=== PATIENT | female | born 1995 | race Caucasian/White ===

== ENCOUNTER 2017-10-11 23:54 | Emergency (ER) | payer MEDICAID ==
[2017-10-12] MEDS ORDERED: Amoxicillin PO (*) 500 MG CAP PO ONE (00:11)
[2017-10-12] MEDS ORDERED: Acetaminophen TAB* 325 MG PO ONE (00:12)
[2017-10-12 00:32] VITALS: BP 107/49
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
== END 2017-10-12 00:30 | disposition home or self-care (01) ==
LOC: ED 23:54
DX: O26.891 Other specified pregnancy related conditions, first trimester (principal); J02.9 Acute pharyngitis, unspecified; Z3A.10 10 weeks gestation of pregnancy; O99.331 Smoking (tobacco) complicating pregnancy, first trimester; F17.210 Nicotine dependence, cigarettes, uncomplicated
CPT/HCPCS: 99282; A9270-GY

== ENCOUNTER 2017-11-05 21:49 | Emergency (ER) | payer MEDICAID ==
[2017-11-05] MEDS ORDERED: Acetaminophen TAB* 325 MG PO ONE (22:30)
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
[2017-11-05 23:05] VITALS: BP 119/74
== END 2017-11-05 23:04 | disposition home or self-care (01) ==
LOC: ED 21:49
DX: M54.2 Cervicalgia (principal); R06.02 Shortness of breath; F17.210 Nicotine dependence, cigarettes, uncomplicated; Z33.1 Pregnant state, incidental
CPT/HCPCS: 99282; A9270-GY

== ENCOUNTER 2017-12-28 12:22 | Emergency (ER) | payer MEDICAID ==
[2017-12-28] MEDS ORDERED: NS 0.9% 1000 ML* 1,000 ML IV ONE (12:55)
[2017-12-28] MEDS ORDERED: Ondansetron INJ* 2 MG/ML VIAL IV ONE (12:56)
[2017-12-28 13:25] LABS: Urine Appearance Cloudy; Urine Blood Negative (Negative); Urine Color Amber; Urine Ketones Trace (Negative); Urine Protein 1+(30 mg/dL) (Negative); Urine Specific Gravity 1.031 (1.010-1.030); Urine Urobilinogen Negative (Negative)
[2017-12-28 13:29] LABS: ABS Basophils 0 10^3/ul (0-0.2); ABS Eosinophils 0.2 10^3/ul (0-0.6); ABS Lymphocytes 1.8 10^3/ul (1.0-4.8); ABS Monocytes 0.4 10^3/ul (0-0.8); ABS Neutrophils 6.6 10^3/ul (1.5-7.7); ABS Nucleated RBC 0 10^3/ul; Eosinophil % 2.2 % (0-6); Hematocrit 30 % (35-47); Hemoglobin 10.5 g/dl (12.0-16.0); Lymphocyte % 19.7 % (25-47); Mean Corpuscular HGB Conc 36 g/dl (31-36); Mean Corpuscular Hemoglobin 29 pg (27-31); Mean Corpuscular Volume 83 fL (80-97); Mean Platelet Volume 6 um3 (7.4-10.4); Nucleated Red Blood Cells % 0; Platelet Count 180 10^3/ul (150-450); Red Blood Count 3.57 10^6/ul (4.0-5.4); Red Cell Distribution Width 14 % (10.5-15); White Blood Count 8.9 10^3/ul (3.5-10.8)
[2017-12-28 13:43] LABS: EGFR Non-African American 195.8 (>60)
[2017-12-28 14:53] VITALS: BP 96/64
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
--- NOTE | 2017-12-30 10:53 | ED ---
Progress - Progress Note Progress Note: Patient's urine culture reveals 10-25,000 strep group B and greater than 100, 000 normal kylie. No further action needed at this time regarding treatment however informed patient to notify her OBGYN of results (she reports she follows w/ [facility]) as treatment will be necessary given the fact that she is . SHe admits she's had this in the past w/ pregnancies and is aware of this bacterial colonization. She also admits she continues to have diarrhea past 2 weeks and this continues despite fluid replacement in ED. Advised pt to request stool cx through PCP's office. Pt agrees to call Sunday and return to ED if danger s/sx present. Course/Dx - Diagnoses Provider Diagnoses: Nausea and vomiting in
== END 2017-12-28 14:52 | disposition home or self-care (01) ==
LOC: ED 12:22
DX: O21.2 Late vomiting of pregnancy (principal); O26.892 Other specified pregnancy related conditions, second trimester; R19.7 Diarrhea, unspecified; R10.9 Unspecified abdominal pain; O99.332 Smoking (tobacco) complicating pregnancy, second trimester; F17.210 Nicotine dependence, cigarettes, uncomplicated; Z3A.21 21 weeks gestation of pregnancy; Z88.5 Allergy status to narcotic agent
CPT/HCPCS: 36415; 80053; 81003; 81015; 83690; 85025; 86140; 87077; 87086; 96361; 96374; 99282; J2405

== ENCOUNTER 2018-01-04 11:51 | Emergency (ER) | payer MEDICAID ==
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
[2018-01-04 14:06] VITALS: BP 121/68
== END 2018-01-04 14:05 | disposition home or self-care (01) ==
LOC: ED 11:51
DX: O26.892 Other specified pregnancy related conditions, second trimester (principal); Z3A.22 22 weeks gestation of pregnancy; R22.9 Localized swelling, mass and lump, unspecified; J45.909 Unspecified asthma, uncomplicated; O99.342 Other mental disorders complicating pregnancy, second trimester; F41.9 Anxiety disorder, unspecified; Z88.5 Allergy status to narcotic agent
CPT/HCPCS: 99281

== ENCOUNTER 2018-01-15 21:49 | Emergency (ER) | payer MEDICAID ==
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
[2018-01-15 22:45] VITALS: BP 111/49
== END 2018-01-15 22:45 | disposition home or self-care (01) ==
LOC: ED 21:49
DX: S50.311A Abrasion of right elbow, initial encounter (principal); W45.8XXA Other foreign body or object entering through skin, initial encounter; Y92.9 Unspecified place or not applicable; F17.210 Nicotine dependence, cigarettes, uncomplicated
CPT/HCPCS: 99281

== ENCOUNTER 2018-01-29 21:44 | Emergency (ER) | payer MEDICAID ==
[2018-01-29] MEDS ORDERED: Albuterol/Ipratropium NEB.SOL* Albuterol 2.5 MG/Ipratropium 0.5 MG 3 ML INH ONE (22:15)
[2018-01-29 22:51] VITALS: BP 0/0
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
== END 2018-01-29 22:52 | disposition home or self-care (01) ==
LOC: ED 21:44
DX: J45.909 Unspecified asthma, uncomplicated (principal); F41.9 Anxiety disorder, unspecified; R06.02 Shortness of breath; F17.210 Nicotine dependence, cigarettes, uncomplicated
CPT/HCPCS: 99282

== ENCOUNTER 2018-02-21 06:42 | Emergency (ER) | payer MEDICAID ==
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
[2018-02-21 07:44] VITALS: BP 102/62
[2018-02-21 07:52] LABS: EGFR Non-African American 152.2 (>60)
[2018-02-21 07:52] LABS: ABS Basophils 0 10^3/ul (0-0.2); ABS Eosinophils 0.2 10^3/ul (0-0.6); ABS Lymphocytes 2.5 10^3/ul (1.0-4.8); ABS Monocytes 0.6 10^3/ul (0-0.8); ABS Neutrophils 8.1 10^3/ul (1.5-7.7); ABS Nucleated RBC 0 10^3/ul; Eosinophil % 1.4 % (0-6); Hematocrit 29 % (35-47); Hemoglobin 10.2 g/dl (12.0-16.0); Lymphocyte % 22.3 % (25-47); Mean Corpuscular HGB Conc 35 g/dl (31-36); Mean Corpuscular Hemoglobin 29 pg (27-31); Mean Corpuscular Volume 82 fL (80-97); Mean Platelet Volume 6.3 um3 (7.4-10.4); Nucleated Red Blood Cells % 0; Platelet Count 196 10^3/ul (150-450); Red Blood Count 3.55 10^6/ul (4.0-5.4); Red Cell Distribution Width 14 % (10.5-15); White Blood Count 11.3 10^3/ul (3.5-10.8)
[2018-02-21 08:04] LABS: INR 1.02 (0.77-1.02)
== END 2018-02-21 07:40 | disposition home or self-care (01) ==
LOC: ED 06:42
DX: O9A.213 Injury, poisoning and certain other consequences of external causes complicating pregnancy, third trimester (principal); O9A.313 Physical abuse complicating pregnancy, third trimester; Z3A.30 30 weeks gestation of pregnancy; R10.9 Unspecified abdominal pain; F17.210 Nicotine dependence, cigarettes, uncomplicated
CPT/HCPCS: 36415; 80053; 85025; 85610; 86850; 86900; 86901; 99282

== ENCOUNTER 2018-04-29 12:05 | Inpatient (IN) | payer MEDICAID ==
[~2018-04-29 12:05] MED LIST: Oxytocin in LR* 20 UNITS/1,000 ML BAG IVPB SCH; Penicillin G Potassium IV* 5,000,000 UNITS in NS 0.9% 100 ML* 100 ML IVPB ONE
[2018-04-29 13:00] LABS: ABS Basophils 0.1 10^3/ul (0-0.2); ABS Eosinophils 0.2 10^3/ul (0-0.6); ABS Lymphocytes 1.7 10^3/ul (1.0-4.8); ABS Monocytes 0.5 10^3/ul (0-0.8); ABS Neutrophils 7.6 10^3/ul (1.5-7.7); ABS Nucleated RBC 0 10^3/ul; Hematocrit 30 % (35-47); Hemoglobin 10.3 g/dl (12.0-16.0); Mean Corpuscular HGB Conc 34 g/dl (31-36); Mean Corpuscular Hemoglobin 28 pg (27-31); Mean Corpuscular Volume 81 fL (80-97); Mean Platelet Volume 6.5 um3 (7.4-10.4); Nucleated Red Blood Cells % 0; Platelet Count 201 10^3/ul (150-450); Red Blood Count 3.75 10^6/ul (4.00-5.40); Red Cell Distribution Width 15 % (10.5-15)
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
[2018-04-29] MEDS: Penicillin G Potassium IV* 2,500,000 UNITS in NS 0.9% 100 ML* 100 ML IVPB SCH ×2 (17:38→21:35)
[2018-04-29] MEDS ORDERED: Oxytocin in LR* 20 UNITS/1,000 ML BAG IVPB SCH (20:00)
[2018-04-29] MEDS ORDERED: OBEPIDURAL* 250 ML EPIDURAL ONE (20:15)
[2018-04-29] MEDS ORDERED: fentaNYL* 50 MCG/ML 2 ML VIAL (100 MCG VIAL) ONE (20:16)
[2018-04-29] MEDS ORDERED: EPHEDrine (Pressors)* 50 MG/ML VIAL IV PUSH PRN (20:57)
[2018-04-29] MEDS ORDERED: Phenylephrine IV* 40 MCG/ML 10 ML SYRINGE IV PUSH PRN (20:57)
[2018-04-29] MEDS ORDERED: Sodium Citrate/Citric Acid* 15 ML UDC PO PRN (20:57)
[2018-04-29] MEDS ORDERED: Famotidine TAB* 20 MG PO PRN (20:57)
[2018-04-29] MEDS ORDERED: OBEPIDURAL* 250 ML EPIDURAL SCH (21:00)
[2018-04-30] MEDS: Penicillin G Potassium IV* 2,500,000 UNITS in NS 0.9% 100 ML* 100 ML IVPB SCH ×2 (01:39→05:37)
[2018-04-30] MEDS ORDERED: HETASTARCH 6% IV PRN (02:17)
[2018-04-30] MEDS ORDERED: NS IV PRN (02:17)
[2018-04-30] MEDS ORDERED: Ondansetron INJ* 2 MG/ML VIAL IV PRN (06:15)
[2018-04-30] MEDS ORDERED: Ondansetron INJ* 2 MG/ML VIAL ONE (06:20)
[2018-04-30] MEDS ORDERED: Chloroprocaine 2%* 20 ML VIAL ONE (07:43)
[2018-04-30] MEDS ORDERED: Lidocaine 1.5% EPI 1:200,000* 30 ML SDV ONE (07:44)
[2018-04-30] MEDS ORDERED: Glycerin ADULT SUPP PR PRN (09:27)
[2018-04-30] MEDS ORDERED: Misoprostol TAB* 200 MCG PR ONE (09:27)
[2018-04-30] MEDS ORDERED: Methylergonovine INJ* 0.2 MG/ML 1ML AMP IM ONE (09:27)
[2018-04-30] MEDS ORDERED: Witch Hazel PAD* JAR TOPICAL PRN (09:27)
[2018-04-30] MEDS ORDERED: Dibucaine 1% 28.35 GM TUBE PR PRN (09:27)
[2018-04-30] MEDS ORDERED: Oxytocin in LR* 20 UNITS/1,000 ML BAG IVPB SCH (10:00)
[2018-04-30] MEDS: Ibuprofen TAB* 600 MG PO PRN ×3 (10:29→22:36)
[2018-04-30] MEDS ORDERED: Simethicone TAB* 80 MG TAB.CHEW PO SCH (12:30)
[2018-04-30] MEDS: Docusate CAP* 100 MG PO SCH ×2 (16:13→20:48)
[2018-04-30] MEDS: Acetaminophen TAB* 325 MG PO PRN ×2 (16:14→20:48)
--- NOTE | 2018-04-30 19:32 | PROCNOTE ---
[facility] OB: Delivery Note - Delivery A Date of : 04/30/18 Time of : 08:59 [place] Sex: Female Weight at : 6 lb 14 oz Score 1 Minute: 8 Score 5 Minutes: 9 Gestational Age in Weeks and Days at Delivery: 39 Weeks and 3 Days Delivery Method: Spontaneous Vaginal Labor: Induced Did Patient attempt ?: N/A, No Previous Amniotic Fluid: Clear Estimated Blood Loss: 550 Anesthesia/Analgesia: CEI for Labor Delivered By: Ana Ji - Nursery Level of Nursery: Regular/Bedside - Perineum Perineal Injury: None/Intact Perineal Repair: None - Events Delivery Events of Note: Pitocin During Labor, Protracted/Long Labor, Full Course of Antibiotics, Post- Bleeding - Meds Given - Risk for Falls Delivered OB Patient- Risk for Falls: Heavy Bleeding Fall Risk: Patient is at High Risk for Falls - Additional Delivery Notes Additional Delivery Notes: Pt admitted for elective IOL. Pitocin lead to active labor. Patient received epidural as desired with good relief after bolus. LOL 19'20", pushed 10 min. Baby born OA to ANDREA with posterior arm around neck, over intact perineum, delivered to maternal abdomen with spontaneous cry. Cord doubly clamped and cut by patient's partner once pulsations ceased. Placenta delivered with gentle cord traction @ 0906. Brisk bleeding noted. Pitocin infusing, 800mcg cytotec given MI and methergine 0.2mg IM given along with fundal massage to finally firm uterus and control bleeding. Total EBL 550ml. Baby at breast to initiate , planning both breast and formula. Mother and baby stable.
[2018-05-01] MEDS: Ibuprofen TAB* 600 MG PO PRN ×3 (05:05→18:06)
[2018-05-01] MEDS: Acetaminophen TAB* 325 MG PO PRN ×5 (05:05→22:30)
[2018-05-01 07:52] LABS: ABS Basophils 0.1 10^3/ul (0-0.2); ABS Eosinophils 0.2 10^3/ul (0-0.6); ABS Lymphocytes 2.3 10^3/ul (1.0-4.8); ABS Monocytes 0.6 10^3/ul (0-0.8); ABS Neutrophils 7.3 10^3/ul (1.5-7.7); ABS Nucleated RBC 0 10^3/ul; Eosinophil % 2.3 % (0-6); Hematocrit 24 % (35-47); Hemoglobin 8.2 g/dl (12.0-16.0); Lymphocyte % 21.8 % (25-47); Mean Corpuscular HGB Conc 35 g/dl (31-36); Mean Corpuscular Hemoglobin 28 pg (27-31); Mean Corpuscular Volume 80 fL (80-97); Mean Platelet Volume 6.4 um3 (7.4-10.4); Nucleated Red Blood Cells % 0; Platelet Count 189 10^3/ul (150-450); Red Blood Count 2.93 10^6/ul (4.00-5.40); Red Cell Distribution Width 14 % (10.5-15); White Blood Count 10.4 10^3/ul (3.5-10.8)
[2018-05-01] MEDS: Docusate CAP* 100 MG PO SCH ×3 (09:11→23:06)
[2018-05-01] MEDS: Ferrous Gluconate TAB* 324 MG TAB PO SCH ×2 (09:11→23:06)
[2018-05-01] MEDS ORDERED: Benzocaine/Menthol LOZ* 1 LOZENGE PO PRN (17:29)
[2018-05-02] MEDS: Ibuprofen TAB* 600 MG PO PRN (02:36)
[2018-05-02 07:44] VITALS: BP 117/49
== END 2018-05-02 12:39 | disposition home or self-care (01) | DRG 560 ==
LOC: MCHOBOUT 12:05 → MCHOB 12:13
PROVIDERS: ADMIT Midwife; ATTEND Midwife
PROC: 10907ZC Drainage of Amniotic Fluid, Therapeutic from Products of Conception, Via Natural or Artificial Opening (ICD-10-PCS; principal; 2018-04-30)
PROC: 3E033VJ Introduction of Other Hormone into Peripheral Vein, Percutaneous Approach (ICD-10-PCS; 2018-04-30)
PROC: 10E0XZZ Delivery of Products of Conception, External Approach (ICD-10-PCS; 2018-04-30)
PROC: 4A1HXCZ Monitoring of Products of Conception, Cardiac Rate, External Approach (ICD-10-PCS; 2018-04-30)
PROC: 10H07YZ Insertion of Other Device into Products of Conception, Via Natural or Artificial Opening (ICD-10-PCS; 2018-04-30)
PROC: 4A1H7CZ Monitoring of Products of Conception, Cardiac Rate, Via Natural or Artificial Opening (ICD-10-PCS; 2018-04-30)
DX: O99.824 Streptococcus B carrier state complicating childbirth (principal); O72.1 Other immediate postpartum hemorrhage; Z68.41 Body mass index [BMI] 40.0-44.9, adult; Z3A.39 39 weeks gestation of pregnancy; Z37.0 Single live birth; O99.324 Drug use complicating childbirth; O99.52 Diseases of the respiratory system complicating childbirth; J45.909 Unspecified asthma, uncomplicated; Z83.3 Family history of diabetes mellitus; Z82.49 Family history of ischemic heart disease and other diseases of the circulatory system; Z84.1 Family history of disorders of kidney and ureter; Z60.8 Other problems related to social environment; Z88.5 Allergy status to narcotic agent; Z91.013 Allergy to seafood; Z91.048 Other nonmedicinal substance allergy status; O99.214 Obesity complicating childbirth; O99.334 Smoking (tobacco) complicating childbirth; F17.200 Nicotine dependence, unspecified, uncomplicated; Z60.9 Problem related to social environment, unspecified; O90.81 Anemia of the puerperium; O43.893 Other placental disorders, third trimester; O63.9 Long labor, unspecified; O32.8XX0 Maternal care for other malpresentation of fetus, not applicable or unspecified
CPT/HCPCS: 36415; 80307; 85025; 86850; 86900; 86901; 87651; A9270-GY; J2210; J2400; J2405; J2540; J3010

== ENCOUNTER 2018-06-24 21:29 | Emergency (ER) | payer MEDICAID ==
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
[2018-06-24 23:05] LABS: Urine Appearance Clear; Urine Blood Negative (Negative); Urine Color Yellow; Urine Ketones Negative (Negative); Urine Protein Negative (Negative); Urine Specific Gravity 1.014 (1.010-1.030); Urine Urobilinogen Negative (Negative)
[2018-06-24 23:07] LABS: ABS Basophils 0.1 10^3/ul (0-0.2); ABS Eosinophils 0.1 10^3/ul (0-0.6); ABS Lymphocytes 1.6 10^3/ul (1.0-4.8); ABS Monocytes 0.2 10^3/ul (0-0.8); ABS Neutrophils 3.6 10^3/ul (1.5-7.7); ABS Nucleated RBC 0 10^3/ul; Eosinophil % 2.5 % (0-6); Hematocrit 35 % (35-47); Hemoglobin 11.5 g/dl (12.0-16.0); Lymphocyte % 28.2 % (25-47); Mean Corpuscular HGB Conc 33 g/dl (31-36); Mean Corpuscular Hemoglobin 25 pg (27-31); Mean Corpuscular Volume 77 fL (80-97); Mean Platelet Volume 6.5 um3 (7.4-10.4); Nucleated Red Blood Cells % 0.2; Platelet Count 248 10^3/ul (150-450); Red Blood Count 4.58 10^6/ul (4.00-5.40); Red Cell Distribution Width 15 % (10.5-15); White Blood Count 5.6 10^3/ul (3.5-10.8)
[2018-06-24 23:26] LABS: EGFR Non-African American 102.3 (>60)
[2018-06-25] MEDS ORDERED: Ibuprofen TAB* 800 MG PO ONE (01:23)
[2018-06-25 01:58] VITALS: BP 118/63
== END 2018-06-25 01:44 | disposition home or self-care (01) ==
LOC: ED 21:29
DX: F43.20 Adjustment disorder, unspecified (principal)
CPT/HCPCS: 36415; 80053; 80307; 80320; 80329; 81003; 84443; 85025; 99284; G0480

== ENCOUNTER 2018-08-02 16:02 | Emergency (ER) | payer OTHER ==
[2018-08-02 16:15] VITALS: BP 95/56
== END 2018-08-02 18:43 | disposition home or self-care (01) ==
LOC: ED 16:02
DX: R05 Cough (principal); Z53.21 Procedure and treatment not carried out due to patient leaving prior to being seen by health care provider
CPT/HCPCS: 99282

== ENCOUNTER 2018-12-04 02:22 | Emergency (ER) | payer OTHER ==
[2018-12-04] MEDS ORDERED: NS 0.9% 1000 ML** 1,000 ML IV ONE (02:52)
[2018-12-04] MEDS ORDERED: Metoclopramide IV* 5 MG/ML 2 ML VIAL IV SLOW PU ONE (02:52)
[2018-12-04 03:12] LABS: ABS Basophils 0 10^3/ul (0-0.2); ABS Eosinophils 0.6 10^3/ul (0-0.6); ABS Lymphocytes 3.1 10^3/ul (1.0-4.8); ABS Monocytes 0.6 10^3/ul (0-0.8); ABS Neutrophils 4.9 10^3/ul (1.5-7.7); ABS Nucleated RBC 0 10^3/ul; Eosinophil % 6.9 %; Hematocrit 37 % (35-47); Hemoglobin 12.6 g/dl (12.0-16.0); Lymphocyte % 33.1 %; Mean Corpuscular HGB Conc 34 g/dl (31-36); Mean Corpuscular Hemoglobin 28 pg (27-31); Mean Corpuscular Volume 82 fL (80-97); Mean Platelet Volume 6.4 fL (7.4-10.4); Nucleated Red Blood Cells % 0; Platelet Count 227 10^3/ul (150-450); Red Blood Count 4.53 10^6/ul (4.00-5.40); Red Cell Distribution Width 15 % (10.5-15); White Blood Count 9.3 10^3/ul (3.5-10.8)
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
[2018-12-04 03:30] LABS: ALT 18 U/L (7-52); AST 14 U/L (13-39); Albumin 4.1 g/dL (3.2-5.2); Albumin/Globulin Ratio 1.5 (1-3); Alkaline Phosphatase 62 U/L (34-104); Amylase 40 U/L (29-103); Anion Gap 9 mmol/L (2-11); BUN/Creatinine Ratio 21.1 (8-20); Blood Urea Nitrogen 12 mg/dL (6-24); C Reactive Protein 4.74 mg/L (<8.01); CO2 Carbon Dioxide 23 mmol/L (22-32); Chloride 105 mmol/L (101-111); EGFR African American 160.5 (>60); EGFR Non-African American 132.6 (>60); Globulin 2.8 g/dL (2-4); Glucose 134 mg/dL (70-100); Magnesium 1.9 mg/dL (1.9-2.7); Potassium 3.4 mmol/L (3.5-5.0); Sodium 137 mmol/L (135-145); Total Protein 6.9 g/dL (6.4-8.9)
[2018-12-04 03:36] LABS: HCG Pregnancy < 0.60 mIU/mL
[2018-12-04] MEDS ORDERED: Potassium Chloride LIQUID* 20 MEQ PACKET PO ONE (03:56)
[2018-12-04 04:34] VITALS: BP 107/67
== END 2018-12-04 04:35 | disposition home or self-care (01) ==
LOC: ED 02:22
DX: R11.2 Nausea with vomiting, unspecified (principal); Z32.02 Encounter for pregnancy test, result negative; Z88.5 Allergy status to narcotic agent; Z91.013 Allergy to seafood; Z91.048 Other nonmedicinal substance allergy status; F17.210 Nicotine dependence, cigarettes, uncomplicated
CPT/HCPCS: 36415; 80053; 82150; 83690; 83735; 84702; 85025; 86140; 96374; 99283; A9270-GY; J2765

== ENCOUNTER 2018-12-06 13:07 | Emergency (ER) | payer OTHER ==
[2018-12-06] MEDS ORDERED: Acetaminophen TAB* 325 MG PO ONE (14:31)
[2018-12-06 14:40] VITALS: BP 119/71
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
== END 2018-12-06 14:40 | disposition home or self-care (01) ==
LOC: ED 13:07
DX: S00.11XA Contusion of right eyelid and periocular area, initial encounter (principal); Y09 Assault by unspecified means; Y92.9 Unspecified place or not applicable; F17.210 Nicotine dependence, cigarettes, uncomplicated
CPT/HCPCS: 99282; A9270-GY

== ENCOUNTER 2018-12-10 14:19 | Emergency (ER) | payer OTHER ==
[2018-12-10] MEDS ORDERED: Ondansetron ODT TAB* 4 MG PO ONE (14:50)
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
[2018-12-10 16:06] VITALS: BP 124/54
== END 2018-12-10 16:26 | disposition home health service (06) ==
LOC: UCEAST 14:19
DX: S36.09XA Other injury of spleen, initial encounter (principal); Y09 Assault by unspecified means; Y92.9 Unspecified place or not applicable; R05 Cough; R11.2 Nausea with vomiting, unspecified; Z88.5 Allergy status to narcotic agent; Z91.013 Allergy to seafood; Z91.048 Other nonmedicinal substance allergy status; F17.210 Nicotine dependence, cigarettes, uncomplicated
CPT/HCPCS: 71046; 84702; 99211; A9270-GY; G0463

== ENCOUNTER 2021-01-12 06:34 | Inpatient (IN) ==
[2021-01-12] MEDS ORDERED: Buffered Lidocaine 1% SYRIN 1 ml INTRADERM ONE (10:25)
[2021-01-12 11:44] LABS: Urine Benzodiazepine Screen None Detected (None Detect); Urine Cannabinoids Screen None Detected (None Detect); Urine Opiates Screen None Detected (None Detect)
[2021-01-12 19:36] LABS: ABS Basophils 0.1 10^3/ul (0-0.2); ABS Eosinophils 0.2 10^3/ul (0-0.6); ABS Lymphocytes 1.9 10^3/ul (1.0-4.8); ABS Monocytes 0.5 10^3/ul (0-0.8); ABS Neutrophils 7.4 10^3/ul (1.5-7.7); Eosinophil % 2.2 %; Hematocrit 33 % (35-47); Hemoglobin 11.6 g/dL (12.0-16.0); Lymphocyte % 18.8 %; Mean Corpuscular HGB Conc 35 g/dL (31-36); Mean Corpuscular Hemoglobin 29 pg (27-31); Mean Corpuscular Volume 84 fL (80-97); Mean Platelet Volume 6.6 fL (7.4-10.4); Platelet Count 151 10^3/uL (150-450); Red Blood Count 3.97 10^6 /uL (3.70-4.87); Red Cell Distribution Width 16 % (10-15); White Blood Count 10.1 10^3/uL (3.5-10.8)
[2021-01-12] MEDS: Lactated Ringers 1000 ml BAG 1,000 ML IV ONE ×2 (20:24→22:15)
[2021-01-12] MEDS ORDERED: Oxytocin in LR 20 UNITS/1,000 ML BAG IVPB SCH (21:00)
[2021-01-13] MEDS ORDERED: Glycerin ADULT 2.4 gm SUPP PR PRN (01:15)
[2021-01-13] MEDS ORDERED: Measles, Mumps,Rubella VACC 0.5 ML/VIAL SUBCUT ONE (01:15)
[2021-01-13] MEDS ORDERED: Witch Hazel PAD JAR TOPICAL PRN (01:15)
[2021-01-13] MEDS ORDERED: Dibucaine 1% OINT 28.35 GM TUBE PR PRN (01:15)
[2021-01-13] MEDS ORDERED: Methylergonovine 0.2 mg AMPULE 1 ml AMP IM ONE (01:29)
[2021-01-13] MEDS ORDERED: Lactated Ringers 1000 ml BAG 1,000 ML IV SCH (02:00)
[2021-01-13] MEDS ORDERED: Oxytocin in LR 20 UNITS/1,000 ML BAG IVPB SCH (02:00)
[2021-01-14 06:43] LABS: ABS Basophils 0.1 10^3/ul (0-0.2); ABS Eosinophils 0.2 10^3/ul (0-0.6); ABS Lymphocytes 2.8 10^3/ul (1.0-4.8); ABS Monocytes 0.4 10^3/ul (0-0.8); ABS Neutrophils 4.8 10^3/ul (1.5-7.7); Hematocrit 26 % (35-47); Hemoglobin 9.1 g/dL (12.0-16.0); Lymphocyte % 33.3 %; Mean Corpuscular HGB Conc 35 g/dL (31-36); Mean Corpuscular Hemoglobin 29 pg (27-31); Mean Corpuscular Volume 84 fL (80-97); Platelet Count 136 10^3/uL (150-450); Red Blood Count 3.13 10^6 /uL (3.70-4.87); Red Cell Distribution Width 17 % (10-15); White Blood Count 8.3 10^3/uL (3.5-10.8)
[2021-01-15 07:47] VITALS: BP 136/70
== END 2021-01-15 13:26 | disposition home or self-care (01) | DRG 560 ==
LOC: MCHOBOUT 06:34 → MCHOB 09:34
PROVIDERS: ADMIT Obstetrics & Gynecology; ATTEND Obstetrics & Gynecology